=== PATIENT | female | born 2000 | race Caucasian/White ===

== ENCOUNTER 2021-02-03 06:26 | Day surgery (SDC) | payer BC ==
--- NOTE | 2021-01-31 09:04 | HP ---
PATIENT: EUGENIO HIRSCH MEDICAL RECORD: [id number] ACCOUNT: [id number] [facility] : 99 ADMISSION DATE: 02/03/21 PCP: HISTORY AND PHYSICAL EXAMINATION HISTORY OF PRESENT ILLNESS: Eugenio is 20. She has had persistent problems with chronic pharyngitis and tonsillitis. She has been admitted for tonsillectomy and adenoidectomy. PAST MEDICAL HISTORY: Includes hypertension, reactive airway disease. PAST SURGICAL HISTORY: Includes bilateral myringotomy and tubes, shoulder surgery. CURRENT MEDICATIONS: Tramadol, escitalopram. ALLERGIES: SULFA AND PENICILLIN. PHYSICAL EXAMINATION: GENERAL: Healthy-appearing, developmentally normal. FACE: Normal, symmetric. EYES: Sclerae and conjunctivae are normal. EARS: Canals and TMs are normal. NOSE: No masses, polyps, or drainage. ORAL CAVITY AND OROPHARYNX: 4+ cryptic chronically inflamed appearing tonsils. NECK: No masses, no adenopathy. CHEST: Clear. CARDIOVASCULAR: Regular rate and rhythm, no murmur. EXTREMITIES: Normal. IMPRESSION: Chronic pharyngitis, caseous tonsillitis. PLAN: Tonsillectomy and adenoidectomy. TRANSINT:[id number] Voice Confirmation ID: [id number] DOCUMENT ID: [id number] ISRA HAYNES MD at 0904 CC: [id number] DICTATION DATE: 01/30/21 1319 CHIEF TRANSFER AND PUMPHOUSE OPERATOR: 01/30/21 1342 [facility] [address] [place] [address]
[~2021-02-03] VITALS: Ht 172.7 cm; Wt 95.7 kg
--- NOTE | ~2021-02-03 | OP ---
PATIENT NAME: EUGENIO HIRSCH MEDICAL RECORD: [id number] :99 LOCATION:[facility] ADMISSION DATE: SURGEON: ISRA RAPP MD DATE OF OPERATION: 02/03/2021 PREOPERATIVE DIAGNOSIS: Chronic pharyngitis. POSTOPERATIVE DIAGNOSIS: Chronic pharyngitis. PROCEDURE: Tonsillectomy and adenoidectomy. SURGEON: Isra Rapp MD ANESTHESIA: General orotracheal. BLOOD LOSS: 2 cc. SPECIMENS: Right and left tonsil. COMPLICATIONS: None. DISPOSITION: Recovery, stable. DESCRIPTION OF PROCEDURE: She was brought to the operating room and placed in supine position, sedated and intubated by anesthesia. The eyes were taped. Table was turned 90 degrees. Head drape was applied. She was positioned for tonsillectomy. Using a headlight, a Patti-Bharat mouth gag was carefully inserted and elevated on a towel on her chest. The palate was examined and palpated. It was normal. A red rubber catheter was placed through the right side of the nose and pharynx was grasped with tonsil clamp to retract the soft palate. Using a mirror, the nasopharynx was examined. Suction cautery on a setting of 35 was used to ablate the adenoid tissue up by the choana. The choanae and eustachian orifices were normal bilaterally. The red rubber catheter was let down and removed. The right tonsil was grasped at superior pole with a straight Allis clamp. Spatula tip cautery on a setting of 8 was used to dissect out the tonsil along its capsule, preserving the anterior and posterior tonsillar pillar. The left tonsil was removed in the same fashion. Then, both sides of the nose were irrigated with saline. The pharynx was suctioned. Tonsillar fossae were agitated. Suction cautery on a setting of 18 was used to control minimal oozing. With the field clean and dry, a Patti-Bharat mouth gag was let down and removed. She was awakened, extubated, and transported to recovery in good condition. No complications. TRANSINT:[id number] Voice Confirmation ID: [id number] DOCUMENT ID: [id number] ISRA RAPP MD CC: [id number] DICTATION DATE: 02/03/21 0957 YOUTH PROGRAM DIRECTOR: 02/03/21 1326 [facility] 02/03/21 [facility] [address] [id number]
[~2021-02-03 06:26] MED LIST: BC PILL PO; LEXAPRO20 MG PO; TRAZODONE HCL150 MG PO
[2021-02-03 06:57] LABS: HEMATOCRIT 42.6 % (36.0-48.0); HEMOGLOBIN 14.4 g/dL (12-16); MCH 29.4 pg (26.0-34.0); MCHC 33.8 g/dL (31.0-37.0); MCV 86.9 fL (80.0-100.0); MEAN PLATELET VOLUME 10.9 fL (7.4-10.4); RBC 4.9 10x6/uL (4.00-5.40); RDW 13.4 % (11.5-14.5); WBC 8.9 10x3/uL (4.8-10.8)
[2021-02-03 07:10] LABS: HCG SERUM NEGATIVE (NEGATIVE)
[2021-02-03 07:44] VITALS: BP 108/73; Ht 172.7 cm; Wt 95.7 kg
--- NOTE | 2021-02-03 10:00 | NUR ---
PT ALREADY RECIEVED 2 MG OF DILAUDED BEFORE COMING TO SURGERY. COMMUNICATED TO PT.
--- NOTE | 2021-02-03 10:34 | NUR ---
PT C/O "ITCHING ALL OVER". NOTIFIED DONIS WILSON. NEW ORDER RECEIVED FOR BENADRYL 25 MG IV X1. 1049- BENADRYL 25 MG IV ADMINISTERED FOR ITCHING. 1057- LORTAB ELIXIR 7.5/325, 10 ML, PO GIVEN FOR PAIN 01/11. 1118- PAIN DOWN TO 3/10 AFTER PAIN MED ADMINISTERED.
--- NOTE | 2021-02-03 11:20 | NUR ---
DISCHARGE INSTRUCTIONS REVIEWED WITH PT AND MOTHER. COPY OF DC INSTRUCTIONS AND ORIGINAL RX FOR LORTAB PROVIDED TO PT. BOTH VOICED UNDERSTANDING. IV THEN DC'D WITH CATH TIP INTACT. MOTHER ASSISTING PT TO GET DRESSED.
--- NOTE | 2021-02-03 11:30 | NUR ---
DISCHARGED VIA W/C, ACCOMPANIED BY SANDRA, TO POV WITH MOTHER DRIVING. ALL BELONGINGS WITH PT/MOTHER.
== END 2021-02-03 11:30 | disposition home or self-care (01) ==
LOC: D.OPS 06:26
PROVIDERS: Anesthesiology; ATTEND Otolaryngology
DX: J31.2 Chronic pharyngitis (principal); I10 Essential (primary) hypertension; J45.909 Unspecified asthma, uncomplicated